=== PATIENT | male | born 1970 | race Hispanic/Latino ===

== ENCOUNTER 2018-03-09 06:54 | Emergency (ER) | payer OTHER ==
[2018-03-09 07:08] VITALS: O2SAT 97
[2018-03-09 07:25] VITALS: BMI 22.0
--- NOTE | 2018-03-09 07:41 | ED PDOC ---
HPI: Back Time Seen by Provider: 03/09/18 07:11 Chief Complaint (Nursing): Back Pain Chief Complaint (Provider): Back pain History Per: Patient History/Exam Limitations: no limitations Onset/Duration Of Symptoms: Days (Thursday) Current Symptoms Are (Timing): Still Present Additional Complaint(s): Twisted his back in the shower and pain across lower since. Able to walk with the pain. No numbness, tingles, weakness, incontinence, constipation. No leg pain. No abd pain or dysuria. Did not take any meds for it. Past Medical History Reviewed: Nursing Documentation, Vital Signs Vital Signs: Last Vital Signs Temp 97.5 F L 03/09/18 07:22 Pulse 64 03/09/18 07:22 Resp 18 03/09/18 07:22 BP 145/78 03/09/18 07:22 Pulse Ox 97 03/09/18 07:22 - Medical History PMH: No Chronic Diseases - Surgical History Surgical History: No Surg Hx - Family History Family History: States: Unknown Family Hx - Social History Alcohol: None Drugs: Denies - Home Medications Home Medications: Ambulatory Orders Medication Instructions Recorded Cyclobenzaprine HCl [Flexeril] 10 mg PO TID #12 tab 10/20/15 Naproxen [Naprosyn] 500 mg PO Q12H #20 tab 10/20/15 Ibuprofen [Motrin] 600 mg PO TID 7 Days tab 03/09/18 - Allergies Allergies/Adverse Reactions: Allergies Allergy/AdvReac Type Severity Reaction Status Date / Time No Known Allergies Allergy Verified 10/20/15 11:13 Review of Systems Constitutional: Negative for: Weakness Eyes: Negative for: Vision Change Cardiovascular: Negative for: Chest Pain Respiratory: Negative for: Shortness of Breath Gastrointestinal: Negative for: Nausea, Vomiting, Abdominal Pain, Diarrhea Musculoskeletal: Positive for: Back Pain. Negative for: Neck Pain, Shoulder Pain, Arm Pain, Leg Pain, Foot Pain Skin: Negative for: Rash Neurological: Negative for: Weakness, Numbness Physical Exam - Reviewed Nursing Documentation Reviewed: Yes Vital Signs Reviewed: Yes - Physical Exam Appears: Positive for: Non-toxic, No Acute Distress Head Exam: Positive for: ATRAUMATIC, NORMAL INSPECTION, NORMOCEPHALIC Skin: Positive for: Normal Color, Warm, DRY Neck: Positive for: Normal, Painless ROM Cardiovascular/Chest: Positive for: Regular Rate, Rhythm Respiratory: Positive for: CNT, Normal Breath Sounds Gastrointestinal/Abdominal: Positive for: Normal Exam, Soft. Negative for: Tenderness Back: Positive for: Other (mild tender across lower back). Negative for: L CVA Tenderness, R CVA Tenderness Extremity: Positive for: Normal ROM, Other (straight leg b/l at 60* positive). Negative for: Tenderness, Pedal Edema Neurologic/Psych: Positive for: Alert, Oriented - ECG O2 Sat by Pulse Oximetry: 97 Pulse Ox Interpretation: Normal - Radiology X-Ray: Interpreted by Me, Viewed By Me X-Ray Interpretation: No Acute Disease - Progress ED Course And Treament: 755: Stable. AAOx3. Pain free. Tolerated PO. Ambulated with no issues. FU. Disposition - Clinical Impression Clinical Impression: Low back pain - Patient ED Disposition Is Patient to be Admitted: No Counseled Patient/Family Regarding: Studies Performed, Diagnosis, Need For Followup, Rx Given - Disposition Referrals: [facility] [place] [Outside] - 03/10/18 Disposition: Routine/Home Disposition Time: 07:56 Condition: STABLE Additional Instructions: Return if not better in 3 days. Prescriptions: Ibuprofen [Motrin] 600 mg PO TID 7 Days tab Instructions: Low Back Pain in Adults Forms: [employer] (Pashto), [facility] ED School/Work Excuse Print Language: DIVEHI
--- NOTE | 2018-03-09 08:21 | RAD ---
PROCEDURE: Radiographs of the Lumbar Spine. HISTORY: back pain COMPARISON: No prior. FINDINGS: BONES: There is some straightening of lumbar curvature without fracture or spondylolisthesis identified throughout. Vertebral body disc interspace heights appear normal and no destructive bony lesion is appreciated. There is no spondylolysis with the facet joints intact throughout, bilaterally. Mild spondylosis is seen at the mid to inferior lumbar levels as well as T11-12 incidentally. DISC SPACES: As above. OTHER FINDINGS: None. IMPRESSION: Straightened curvature without fracture or spondylolisthesis appreciable. Minimal degenerative spondylosis inferior lumbar spine as well as visualized inferior thoracic spine.
[2018-03-09 08:43] VITALS: BP 140/70; PULSE 70; RESP 17; TEMP 97.8
== END 2018-03-09 08:20 | disposition home or self-care (01) ==
LOC: H.ER 06:54
DX: M54.5 Low back pain (principal)